=== PATIENT | male | born 1970 | race Caucasian/White ===

== ENCOUNTER 2018-12-14 16:59 | Outpatient (REF) | payer BC, SELFPAY ==
[2018-12-14 19:22] LABS: HCT 45.7 % (40.0-50.0); HGB 15.4 g/dL (13.5-17.5); Mean Corp. HGB Concentration 33.7 g/dL (32.0-36.0); Mean Corpuscular Hemoglobin 32.8 pg (27.0-33.0); Mean Corpuscular Volume 97.2 fL (80-95); Mean Platelet Volume 10.4 fL (8.0-11.0); Platelet Count 226 x1000/uL (130-400); RBC Distribution Width 13.3 % (11.8-14.1); White Blood Cell Count 7.23 k/cumm (4.4-10.8)
[2018-12-14 19:39] LABS: ALT 25 U/L (12-78); AST 19 U/L (15-37); Albumin 4.2 g/dL (3.4-5.0); Alkaline Phosphatase 52 U/L (46-116); Anion Gap 7.9 mmol/L (3-11); BUN 23 mg/dL (7-18); Bilirubin, Total 0.5 mg/dL (0.2-1.0); CO2 29.1 mmol/L (21.0-32.0); CREATININE 1.17 mg/dL (0.70-1.30); Calcium 9.3 mg/dL (8.5-10.1); Chloride 105 mmol/L (98-107); Cholesterol 222 mg/dL (50-200); Glucose 95 mg/dL (70-100); HDL Cholesterol 107 mg/dL (40-60); LDL CHOLESTEROL 91 mg/dL (<100); Potassium 4.3 mmol/L (3.5-5.1); Sodium 142 mmol/L (136-145); Total Protein 7.5 g/dL (6.4-8.2); Triglyceride 106 mg/dL (30-150)
== END 2018-12-14 17:19 ==
LOC: NCHCN 16:59
PROVIDERS: PCP Family Medicine; Visit Provider Family Medicine
DX: R53.83 Other fatigue (principal); I10 Essential (primary) hypertension; Z13.220 Encounter for screening for lipoid disorders
CPT/HCPCS: 80053; 80061; 83721; 85027

== ENCOUNTER 2019-03-15 11:09 | Day surgery (SDC) | payer BC, SELFPAY ==
--- NOTE | 2019-03-15 06:48 | W.COLOREPORT ---
Date of service: 03/15/19 Colonoscopy Report Date of procedure: 03/15/19 Pre-op diagnosis general: Colon Cancer Screening Procedure: Colonoscopy Surgeon: Ann-Marie Zaldivar Anesthesia proc note operative: other (General/ ASA / ) Complications: None Disposition: no change Indications: Mr. Hay is a pleasant 48 year old male seen in the office for a screening colonoscopy. This is his first Colonoscopy. Risks, benefits and complications have been reviewed. Complications include but are not limited to bleeding, pain, perforation, missed small lesion/polyp, sore throat, aspiration and adverse reaction to the medications. Questions were entertained and answered to their satisfaction and they wished to proceed. No guarantees were given or implied. Prep: Miralax/Dulcolax Procedure Description: After informed consent was obtained the patient was taken to the procedure room and placed in a left decubitous position. Monitors were applied and a time out was done. The patients name, date of , procedure, allergies to medications and metal in their body was reviewed. The patient was then sedated. Once sedated and comfortable a rectal exam was done. External exam was normal. Internal exam revealed a normal sphincter tone and no palpable masses. The prostate []. The scope was then introduced and retro-flexed. [] internal hemorrhoids were identified. The scope was then advanced to the cecum [] difficulty. The TI and appendiceal orifice were identified. The prep was []. The scope was then slowly retracted over [] minutes back into the rectum. Polyps were removed at []. The scope was removed and the patient was woken up and taken back to Same day surgery in stable condition. The patient tolerated the procedure well and there were no immediate complications. Follow up: The patient should follow up in [] years unless they develop changes in bowel habits or other new gastrointestinal complaints.
--- NOTE | 2019-03-15 06:52 | PDOC.DSDIS_ITS ---
Discharge Plan Disposition Patient Disposition: HOME Condition: Good Discharge Details Reason For Visit: Colon Cancer Screening Attending Provider: Ann-Marie Zaldivar Primary Care Provider: Bola Meyer Home Meds and New Rx's Prescriptions: No Action polyethylene glycol 3350 17 gram/dose powder 238 g PO ONCE Qty: 238 RF: 0 bisacodyl [Dulcolax (bisacodyl)] 5 mg tablet,delayed release (DR/EC) 5 mg PO ONCE Qty: 4 RF: 0 amlodipine 2.5 mg tablet 2.5 mg PO DAILY RF: 0 losartan 100 mg tablet 100 mg PO DAILY RF: 0 allopurinol 300 mg tablet 300 mg PO DAILY RF: 0 cetirizine 10 mg tablet 10 mg PO DAILY RF: 0 vardenafil [Levitra] 20 mg tablet 20 mg PO ONCE PRNRF: 0 albuterol sulfate [ProAir HFA] 90 mcg/actuation HFA aerosol inhaler 1 puff IH QID PRN (Reason: shortness of breath or wheezing) RF: 0 fluticasone propionate [Flonase Allergy Relief] 50 mcg/actuation [place],Suspension 1 spray INTRANASAL DAILY RF: 0 multivitamin Tablet,Chewable 1 tab PO DAILY RF: 0 Discharge Instructions Instructions: Colonoscopy (DC) Additional Instructions: Findings: Follow up: Please call if you develop: fevers >101.5 Nausea or Vomiting Abdominal pain that is not transient DAY SURGERY UNIT POST COLONOSCOPY INSTRUCTIONS 1. Because there will be medication in your system for the next 24 hours, you may feel a little sleepy. Your coordination will be affected. Therefore: a. Do not drive or operate dangerous equipment for 24 hours. b. Do not drink alcohol beverages for 24 hours (not even beer). c. Plan to go home and rest for the day. 2. Generally there are no restrictions on your activity after a day or so has gone by, but you may feel a bit fatigued for a few days. 3 After you arrive home you may have a light meal and return to a normal diet as you can tolerate it without feeling sick to your stomach. 4. After surgery, you may feel pain or discomfort. This should be only transient, but if it persists please contact your doctor. 5. If there are any questions regarding the findings of your procedure, please feel free to contact your doctor. 6. If you are unable to contact your doctor with a problem, contact the hospital at [phone]. 7. Continue all your regular medications unless directed otherwise. I understand the above instructions and have no questions. Signature of Patient or Responsible Adult Escort Date/Time Name of Responsible Adult Escort Signature of Nurse Date/Time Activity:: Activity as Tolerated Diet:: As Tolerated Discharge Orders Discharge Orders: Discharge Order (Routine); Ordered 03/15/19 Ordered By: Ann-Marie Zaldivar DS: Diagnosis Discharge Diagnosis (1) S/P colonoscopy: Status: Acute
[2019-03-15 11:37] VITALS: BP 136/88; PULSE 89; RESP 16; TEMP 36.4; O2SAT 97
== END 2019-03-15 11:37 | disposition home or self-care (01) ==
LOC: SUR 11:09
PROVIDERS: PCP Family Medicine; Visit Provider Surgery
DX: Z12.11 Encounter for screening for malignant neoplasm of colon (principal); Y66 Nonadministration of surgical and medical care; Z53.29 Procedure and treatment not carried out because of patient's decision for other reasons
CPT/HCPCS: 45378

== ENCOUNTER 2019-04-05 08:09 | Day surgery (SDC) | payer BC, SELFPAY ==
--- NOTE | 2019-04-05 06:26 | W.COLOREPORT ---
Date of service: 04/05/19 Time of Service: :43 Colonoscopy Report Date of procedure: 04/05/19 Pre-op diagnosis general: Colon Cancer Screening Post-op diagnosis procedure note: other (Colorectal polyps) Procedure: Colonoscopy with polypectomy by cold forceps and snare Surgeon: Ann-Marie Zaldivar Anesthesia proc note operative: other (General/ ASA 2/ Anna Lux, LAUREEN) Estimated blood loss (mL): 5 Pathology: other (Transverse P x1, Sigmoid polyp x2, rectal polyp x1) Complications: None Disposition: no change Indications: Mr. Hay is a pleasant 48-year-old male who was seen in the office for a screening colonoscopy. This will be his first colonoscopy. He has no family history of colon cancer that he is aware of. Risks, benefits and complications have been reviewed. Complications include but are not limited to bleeding, pain, perforation, missed small lesion/polyp, sore throat, aspiration and adverse reaction to the medications. Questions were entertained and answered to their satisfaction and they wished to proceed. No guarantees were given or implied. Prep: Miralax/Dulcolax Procedure Start Time: : Procedure End Time: 10:15 Retraction Time: 27 minutes Findings: 1. small sessile polyp noted in the transverse colon 2. Sigmoid polyps x 2 one sessile and one pedunculated 3. Rectal polyp pedunculated at 8 cm Procedure Description: After informed consent was obtained the patient was taken to the procedure room and placed in a left decubitous position. Monitors were applied and a time out was done. The patients name, date of , procedure, allergies to medications and metal in their body was reviewed. The patient was then sedated. Once sedated and comfortable a rectal exam was done. External exam was normal. Internal exam revealed a normal sphincter tone and no palpable masses. The prostate felt smooth. The scope was then introduced and retro-flexed. No internal hemorrhoids were identified. The scope was then advanced to the cecum without difficulty. The TI and appendiceal orifice were identified. The prep was adequate. The scope was then slowly retracted over 27 minutes back into the rectum. Polyps were removed with cold forceps in the transverse colon x1, with cold forceps X 1 and snare in the sigmoid colon X1, and in the rectum X1 with a snare . There were no diverticula. The scope was removed and the patient was woken up and taken back to Same day surgery in stable condition. The patient tolerated the procedure well and there were no immediate complications. Follow up: The patient should follow up in 3-5 years unless they develop changes in bowel habits or other new gastrointestinal complaints.
--- NOTE | 2019-04-05 06:28 | W.PM.DSUDISC ---
Discharge Plan Disposition Patient Disposition: HOME Condition: Good Discharge Details Reason For Visit: Colon Cancer Screening Attending Provider: Ann-Marie Zaldivar Primary Care Provider: Bola Meyer Home Meds and New Rx's Prescriptions: Continued amlodipine 2.5 mg tablet 2.5 mg PO DAILY RF: 0 losartan 100 mg tablet 100 mg PO DAILY RF: 0 allopurinol 300 mg tablet 300 mg PO DAILY RF: 0 cetirizine 10 mg tablet 10 mg PO DAILY RF: 0 vardenafil [Levitra] 20 mg tablet 20 mg PO ONCE PRNRF: 0 albuterol sulfate [ProAir HFA] 90 mcg/actuation HFA aerosol inhaler 1 puff IH QID PRN (Reason: shortness of breath or wheezing) RF: 0 fluticasone propionate [Flonase Allergy Relief] 50 mcg/actuation [place],Suspension 1 spray INTRANASAL DAILY RF: 0 multivitamin Tablet,Chewable 1 tab PO DAILY RF: 0 Discontinued polyethylene glycol 3350 17 gram/dose powder 238 g PO ONCE Qty: 238 RF: 0 bisacodyl [Dulcolax (bisacodyl)] 5 mg tablet,delayed release (DR/EC) 5 mg PO ONCE Qty: 4 RF: 0 Discharge Instructions Instructions: Colonoscopy (DC), Colorectal Polyps (DC) Additional Instructions: Findings: polyps x4 Follow up: 3-5 years Please call if you develop: fevers >101.5 Nausea or Vomiting Abdominal pain that is not transient DAY SURGERY UNIT POST COLONOSCOPY INSTRUCTIONS 1. Because there will be medication in your system for the next 24 hours, you may feel a little sleepy. Your coordination will be affected. Therefore: a. Do not drive or operate dangerous equipment for 24 hours. b. Do not drink alcohol beverages for 24 hours (not even beer). c. Plan to go home and rest for the day. 2. Generally there are no restrictions on your activity after a day or so has gone by, but you may feel a bit fatigued for a few days. 3 After you arrive home you may have a light meal and return to a normal diet as you can tolerate it without feeling sick to your stomach. 4. After surgery, you may feel pain or discomfort. This should be only transient, but if it persists please contact your doctor. 5. If there are any questions regarding the findings of your procedure, please feel free to contact your doctor. 6. If you are unable to contact your doctor with a problem, contact the hospital at [phone]. 7. Continue all your regular medications unless directed otherwise. I understand the above instructions and have no questions. Signature of Patient or Responsible Adult Escort Date/Time Name of Responsible Adult Escort Signature of Nurse Date/Time Activity:: Activity as Tolerated Diet:: As Tolerated Discharge Orders Discharge Orders: Discharge Order (Routine); Ordered 04/05/19 Ordered By: Ann-Marie Zaldivar DS: Diagnosis Discharge Diagnosis (1) S/P colonoscopy: Status: Acute (2) Colorectal polyps: Status: Acute
--- NOTE | 2019-04-05 06:29 | HPE_ITS ---
Date of service: 04/05/19 Time of Service: 08:32 Assessment and Plan (1) Encounter for screening colonoscopy: Current visit: No Status: Acute P\\ Colonoscopy under sedation The patient his here for his first Colonoscopy pre-op.He denies a family history of colon cancer. He denies any changes in his bowel habits. -Discussed colonoscopy bowel prep as well as the procedure. Discussed possible complications of the procedure to include bleeding, pain, perforation, missed small lesion/polyp, sore throat, aspiration and adverse reaction to the medications. Questions were answered to patient?s satisfaction. No guarantees were implied or given. -Discussed his high level of alcohol consumption and encouraged him to decrease his intake for this may help reduce his loose stools. Also discussed increasing his fiber intake and provided him with a handout about a high fiber diet and supplemental fiber. History of Present Illness Chief Complaint: Colon Cancer Screening Narrative: 48 y/o male with history HTN, exercise induced asthma and gout presents for his first Colonoscopy screening pre-op. He denies any changes in bowel habits including bloody or black tarry stools, abdominal pain or constipation. He reports that he has had long standing loose stools for most of his life. He denies constitutional symptoms. Denies use of marijuana or any other recreational or illegal drugs. He denies chest pain, palpitations, dyspnea or dyspnea with exertion. He has a rescue inhaler which he reports using only with exercise. He denies prior history or family history of adverse reactions or complications with anesthesia. No changes in his health since he was last seen in the office Review of Systems Constitutional Denies fever(s) Cardiovascular Denies chest pain, Denies irregular heart rhythm, Denies palpitations, Denies dyspnea and Denies dyspnea on exertion Respiratory Denies chest congestion, Denies cough, Denies dyspnea and Denies dyspnea on exertion Endocrine Denies palpitations [facility] Medical History Allergic rhinitis (Chronic) Asthma (Chronic) Erectile dysfunction (Chronic) Fatigue (Chronic) Gout (Chronic) HTN (hypertension) (Chronic) Patellar tendinitis (Chronic) Tobacco dependence (Chronic) Surgical History S/P colonoscopy (Acute ~04/05/19) H/O Achilles tendon repair (Acute) H/O vasectomy (Acute) Family History Other Cancer Heart disease Hypertension Social History Smoking/Tobacco Use Status: Current every day Tobacco Type: smokeless tobacco Quit status: has quit before Alcohol Intake: current Alcohol Intake frequency: 3 or more drinks per day Alcohol type: beer Counseling given: Yes Counseling provided: provider counseling Drug use: Never Substance use type: does not use Details: alcohol: t-2, 3-4 beers, smokeless tobacco: t-1 Do you feel safe at home: Yes Do you feel safe in your relationship?: Yes Meds Home Medications Medication Instructions Recorded Confirmed Type allopurinol 300 mg tablet 300 mg PO DAILY 12/30/18 04/05/19 History amlodipine 2.5 mg tablet 2.5 mg PO DAILY 12/30/18 04/05/19 History cetirizine 10 mg tablet 10 mg PO DAILY 12/30/18 04/05/19 History losartan 100 mg tablet 100 mg PO DAILY 12/30/18 04/05/19 History vardenafil 20 mg tablet 20 mg PO ONCE PRN 12/30/18 04/05/19 History albuterol sulfate HFA 90 1 puff IH QID PRN 03/05/19 04/05/19 History mcg/actuation aerosol inhaler bisacodyl 5 mg tablet,delayed 5 mg PO ONCE #4 tab 03/05/19 04/05/19 Rx release polyethylene glycol 3350 17 238 g PO ONCE #238 gm 03/05/19 04/05/19 Rx gram/dose oral powder fluticasone propionate [Flonase 1 spray INTRANASAL DAILY 03/10/19 04/05/19 History Allergy Relief] multivitamin 1 tab PO DAILY 03/10/19 04/05/19 History Allergies Allergy/AdvReac Type Severity Reaction Status Date / Time colchicine Allergy Intermediate Verified 04/05/19 08:24 Exam Resp Effort & Inspection: normal respiratory effort Auscultation: clear to auscultation bilaterally Cardio Rate: regular rate Rhythm: regular rhythm Heart Sounds: no gallops, no murmurs and no rubs
[2019-04-05 08:21] VITALS: BP 132/90; PULSE 72; RESP 16; TEMP 36; O2SAT 98
[2019-04-05 08:27] VITALS: BP 132/90; PULSE 72; RESP 16; TEMP 36; O2SAT 98
[2019-04-05] MEDS: Lactated Ringers 1,000 ML 80 ML IV (08:45)
--- NOTE | 2019-04-05 09:58 | BOWEL_PTH ---
PATIENT: Grey Hay LOC: [facility] U#:[id number] AGE/SX: 48/M ROOM: RE04/05/[address]: Ann-Marie Zaldivar MD : [id number] BED: DIS: 04/05/2019 SPEC #: [id number] RECD: 04/05/19 12:41 STATUS: LUIS ENRIQUE RE #: [id number] CAROLINE: 04/05/19 09:[address]: Ann-Marie Zaldivar DEPT: Surgical Specimen RECD BY: Marilynn Gan ENTERED: 04/05/19 12:43 SP TYPE: Bowel OTHR DR: Bola Meyer Tissues: 1 - BIOPSY BOWEL 2 - BIOPSY BOWEL 3 - BIOPSY BOWEL Procedures: GROSS AND MICRO LEVEL 4 Comments: [id number]
[2019-04-05 10:55] VITALS: BP 136/80; PULSE 83; RESP 16; TEMP 36; O2SAT 97
== END 2019-04-05 11:10 | disposition home or self-care (01) ==
LOC: SUR 08:09
PROVIDERS: PCP Family Medicine; Visit Provider Surgery
PROC: 0DJD8ZZ Inspection of Lower Intestinal Tract, Via Natural or Artificial Opening Endoscopic (ICD-10-PCS; CPT 45378; principal; 2019-04-05 09:15)
DX: Z12.11 Encounter for screening for malignant neoplasm of colon (principal); D12.3 Benign neoplasm of transverse colon; D12.5 Benign neoplasm of sigmoid colon; D12.8 Benign neoplasm of rectum; K63.5 Polyp of colon; I10 Essential (primary) hypertension
CPT/HCPCS: 45385; 45380; 88305; NC

== ENCOUNTER 2020-10-05 10:37 | Outpatient (REF) | payer BC, SELFPAY ==
[2020-10-05 18:12] LABS: Anion Gap 8.9 mmol/L (3-11); BUN 20 mg/dL (7-18); CO2 28.1 mmol/L (21.0-32.0); CREATININE 1.19 mg/dL (0.70-1.30); Calcium 9.1 mg/dL (8.5-10.1); Chloride 103 mmol/L (98-107); Glucose 103 mg/dL (74-106); Potassium 4.4 mmol/L (3.5-5.1); Sodium 140 mmol/L (136-145); Uric Acid 3.4 mg/dL (3.5-7.2)
== END 2020-10-05 10:57 ==
LOC: NCHCN 10:37
PROVIDERS: PCP Family Medicine; Visit Provider Family Medicine
DX: M10.9 Gout, unspecified (principal); I10 Essential (primary) hypertension
CPT/HCPCS: 80048; 84550

== ENCOUNTER 2021-10-05 21:20 | Outpatient (REF) | payer BC, SELFPAY ==
[2021-10-05 22:12] LABS: Anion Gap 4.9 mmol/L (3-11); BUN 16 mg/dL (7-18); CO2 33.1 mmol/L (21.0-32.0); CREATININE 1.1 mg/dL (0.70-1.30); Calcium 9.2 mg/dL (8.5-10.1); Chloride 106 mmol/L (98-107); Glucose 101 mg/dL (74-106); Potassium 4.7 mmol/L (3.5-5.1); Sodium 144 mmol/L (136-145)
[2021-10-08 09:40] LABS: Hepatitis C Ab w Rflx HCV PCR Negative (Negative)
[2021-10-08 11:35] LABS: IgA 136 mg/dL (85-499); Interpretation (See Note); Tissue Transglutaminase IgA <1.2 U/mL (<4.0)
== END 2021-10-05 21:21 | disposition home or self-care (01) ==
LOC: NCHCN 21:20
PROVIDERS: PCP Family Medicine; Visit Provider Family Medicine
DX: I10 Essential (primary) hypertension (principal); R19.7 Diarrhea, unspecified; Z00.00 Encounter for general adult medical examination without abnormal findings; Z11.59 Encounter for screening for other viral diseases
CPT/HCPCS: 80048; 82784; 83516; 86803

== ENCOUNTER 2022-08-21 18:02 | Outpatient (REF) | payer BC, SELFPAY ==
[2022-08-21 19:52] LABS: Anion Gap 6.2 mmol/L (3-11); BUN 16 mg/dL (7-18); CO2 29.8 mmol/L (21.0-32.0); CREATININE 1.1 mg/dL (0.70-1.30); Calcium 9.3 mg/dL (8.5-10.1); Chloride 102 mmol/L (98-107); Estimated GFR 80.27 (mL/min/1.73m2); Glucose 97 mg/dL (74-106); Potassium 4.3 mmol/L (3.5-5.1); Sodium 138 mmol/L (136-145); Uric Acid 3.1 mg/dL (3.5-7.2)
== END 2022-08-21 18:03 | disposition home or self-care (01) ==
LOC: NCHCN 18:02
PROVIDERS: PCP Family Medicine; Visit Provider Family Medicine
DX: I10 Essential (primary) hypertension (principal); M10.9 Gout, unspecified
CPT/HCPCS: 80048; 84550

== ENCOUNTER 2023-04-23 17:30 | Outpatient (REF) | payer BC, SELFPAY ==
[2023-04-23 20:27] LABS: ALT 49 U/L (16-63); AST 39 U/L (15-37); Albumin 4.1 g/dL (3.4-5.0); Alkaline Phosphatase 53 U/L (46-116); Anion Gap 9.5 mmol/L (3-11); BUN 16 mg/dL (7-18); Bilirubin, Total 0.7 mg/dL (0.2-1.0); CO2 27.5 mmol/L (21.0-32.0); Calcium 9.1 mg/dL (8.5-10.1); Calculated LDL 80 mg/dL (<100); Chloride 101 mmol/L (98-107); Cholesterol 225 mg/dL (<200); Estimated GFR 89.44 (mL/min/1.73m2); Glucose 102 mg/dL (74-106); HDL Cholesterol 134 mg/dL (40-60); Magnesium 1.9 mg/dL (1.8-2.4); Sodium 138 mmol/L (136-145); Total Protein 7.5 g/dL (6.4-8.2); Triglyceride 56 mg/dL (<150); Vitamin B12 388 pg/mL (193-986)
[2023-04-24 19:42] LABS: PSA, Diagnostic 2.9 ng/mL (<=3.5)
== END 2023-04-23 17:31 | disposition home or self-care (01) ==
LOC: NCHCN 17:30
PROVIDERS: PCP Family Medicine; Visit Provider Family Medicine
DX: F10.10 Alcohol abuse, uncomplicated (principal); R39.89 Other symptoms and signs involving the genitourinary system; I10 Essential (primary) hypertension; Z00.00 Encounter for general adult medical examination without abnormal findings; E78.89 Other lipoprotein metabolism disorders; Z79.899 Other long term (current) drug therapy
CPT/HCPCS: 80053; 80061; 82607; 83735; 84153

== ENCOUNTER 2023-05-16 03:11 | Outpatient (CLI) | payer BC, SELFPAY ==
[2023-05-16] MEDS: Albuterol HFA 18 GM 200 PUFF INH IH (11:13)
[2023-05-16] MEDS: Inhaler, Assist Device 1 EACH MC (11:13)
--- NOTE | 2023-05-16 14:13 | W.PFT ---
Date of service: 05/16/23 Time of Service: 10:09 Pulmonary Function Test Result Indications: Asthma Interpretation Spirometry: There is moderate airflow limitation. There is no significant bronchodilator response. Lung Volumes: Normal lung volumes Diffusion Capacity: Normal diffusion Airway Pressure: Normal airways resistance Impression Moderate airflow limitation with a normal diffusion. This can be seen in chronic bronchitis (COPD) or uncontrolled asthma. Clinical Correlation therefore is recommended.
== END 2023-05-16 03:12 | disposition home or self-care (01) ==
LOC: RT 03:11
PROVIDERS: PCP Family Medicine; Visit Provider Family Medicine
DX: J45.20 Mild intermittent asthma, uncomplicated (principal)
CPT/HCPCS: 94060; 94726; 94729

== ENCOUNTER 2024-07-14 19:49 | Outpatient (REF) | payer BC, SELFPAY ==
[2024-07-14 19:47] LABS: Anion Gap 12.3 mmol/L (3-11); BUN 17 mg/dL (7-18); CO2 25.7 mmol/L (21.0-32.0); Calcium 9.6 mg/dL (8.5-10.1); Chloride 101 mmol/L (98-107); Estimated GFR 88.88 (mL/min/1.73m2); Glucose 98 mg/dL (74-106); Sodium 139 mmol/L (136-145)
== END 2024-07-14 19:50 | disposition home or self-care (01) ==
LOC: NCHCN 19:49
PROVIDERS: PCP Family Medicine; Visit Provider Student in an Organized Health Care Education/Training Program
DX: I10 Essential (primary) hypertension (principal)
CPT/HCPCS: 80048

== ENCOUNTER 2025-07-15 18:53 | Outpatient (REF) | payer BC, SELFPAY ==
[2025-07-15 19:30] LABS: ALT 21 U/L (16-63); AST 18 U/L (15-37); Albumin 4.3 g/dL (3.4-5.0); Alkaline Phosphatase 46 U/L (46-116); Anion Gap 9.8 mmol/L (3-11); BUN 15 mg/dL (7-18); Bilirubin, Total 0.8 mg/dL (0.2-1.0); CO2 29.2 mmol/L (21.0-32.0); Calcium 9.4 mg/dL (8.5-10.1); Chloride 102 mmol/L (98-107); Estimated GFR 88.33 (mL/min/1.73m2); Ferritin 329 ng/mL (26-388); Glucose 101 mg/dL (74-106); Potassium 4.2 mmol/L (3.5-5.1); Sodium 141 mmol/L (136-145); Total Protein 7.2 g/dL (6.4-8.2)
[2025-07-15 19:43] LABS: Iron 109 ug/dL (65-175)
[2025-07-18 09:52] LABS: Alpha 1 Antitrypsin,Serum 128 mg/dL (90-200)
== END 2025-07-15 18:54 | disposition home or self-care (01) ==
LOC: NCHCN 18:53
PROVIDERS: PCP Family Medicine; Visit Provider Student in an Organized Health Care Education/Training Program
DX: I10 Essential (primary) hypertension (principal); R74.01 Elevation of levels of liver transaminase levels; R94.2 Abnormal results of pulmonary function studies
CPT/HCPCS: 80053; 82103; 82728; 83540; 85025

== ENCOUNTER 2025-08-25 02:04 | Outpatient (CLI) | payer BC, SELFPAY ==
[2025-08-25 11:14] LABS: Abs Immature Grans 0.01 10^3/uL (0.0-0.06); HCT 43.0 % (40.0-50.0); HGB 14.6 g/dL (13.5-17.5); Immature Grans % 0.2 %; MCH 32.4 pg (27.0-33.0); MCHC 34.0 % (32.0-36.0); MCV 96 fL (80-95); MPV 9.2 fL (8.0-11.0); Platelet Count 173 10^3/uL (130-400); RBC 4.50 10^6/uL (4.36-5.78); RDW 12.4 % (11.8-14.1); RDW-SD 44.2 fL; WBC 4.28 10^3/uL (4.4-10.8)
== END 2025-08-25 02:05 | disposition home or self-care (01) ==
LOC: LBO 02:04
PROVIDERS: PCP Family Medicine; Visit Provider Student in an Organized Health Care Education/Training Program
DX: I10 Essential (primary) hypertension (principal)
CPT/HCPCS: 36415; 85025